=== PATIENT | male | born 1950 | race Two or more races ===

== ENCOUNTER 2024-03-11 12:02 | Emergency (ER) | payer OTHER ==
[~2024-03-11] VITALS: Ht 177.8 cm; Wt 77.1 kg
[2024-03-11] MEDS ORDERED: BUFFERED ASPIR325 M3 (12:16)
[2024-03-11] MEDS ORDERED: NORVASC5 MG (12:16)
[2024-03-11] MEDS ORDERED: TAMSULOSIN HCL 0.4 MG CAP PO ONE ×2 (12:30→13:20)
[2024-03-11] MEDS ORDERED: MEPERIDINE HCL/PF 50 MG/ML VIAL IM ONE (12:45)
[2024-03-11 14:08] LABS: HEMATOCRIT 40.5 % (39.0-48.0); MEAN CELL VOLUME 95.9 fL (80.0-100.00); MEAN CORPUSCULAR HEMOGLOBIN 33.2 pg (27.00-32.0); MEAN CORPUSCULAR HGB CONC 34.6 g/dl (32.0-36.0); PLATELET COUNT 276 K/uL (150-450); RED BLOOD COUNT 4.22 M/uL (4.00-6.00)
[2024-03-11 14:38] LABS: CALCIUM 9.5 mg/dL (8.5-10.1); CREATININE SERUM 1.48 mg/dL (0.70-1.30); GFR 46.46; POTASSIUM 4.74 mEq/L (3.5-5.1)
[2024-03-11] MEDS ORDERED: HEPARIN SODIUM,PORCINE 500 UNITS/5 ML VIAL IV ONE (14:38)
[2024-03-11] MEDS ORDERED: CIPROFLOXACIN IN 5 % DEXTROSE 400 MG/200 ML PIGGYBAG IV ONE ×2 (15:00→15:21)
[2024-03-11] MEDS ORDERED: METHYLPREDNISOLONE SOD SUCC 125 MG VIAL IV ONE (15:15)
[2024-03-11] MEDS ORDERED: METHYLPREDNISOLONE SOD SUCC 125 MG VIAL ONE (15:21)
[2024-03-11] MEDS ORDERED: MEPERIDINE HCL 25 MG/ML AMPUL IV ONE (15:30)
[2024-03-11] MEDS ORDERED: NEOSTIGMINE METHYLSULFATE 1 MG/ML IV ONE (15:45)
[2024-03-11] MEDS ORDERED: LIDOCAINE HCL VISCOUS 20MG/ML BLIST 15ML MM ONE (17:17)
== END 2024-03-12 00:27 | disposition home or self-care (01) ==
LOC: ER 12:04
PROVIDERS: Emergency Medicine
DX: N40.1 Benign prostatic hyperplasia with lower urinary tract symptoms (principal); R33.8 Other retention of urine; I10 Essential (primary) hypertension
CPT/HCPCS: 36415; 96365; 96372; 99282; J0744; J2180; J3490

== ENCOUNTER 2024-03-12 21:26 | Emergency (ER) | payer OTHER ==
[~2024-03-12] VITALS: Ht 167.6 cm; Wt 72.6 kg
[~2024-03-12 21:26] MED LIST: BUFFERED ASPIR325 M3; NORVASC5 MG
== END 2024-03-12 22:26 | disposition home or self-care (01) ==
LOC: ER 21:27
DX: R33.9 Retention of urine, unspecified (principal); I10 Essential (primary) hypertension

== ENCOUNTER 2024-03-19 22:28 | Emergency (ER) | payer OTHER ==
[~2024-03-19] VITALS: Ht 177.8 cm; Wt 76.2 kg
[2024-03-20] MEDS ORDERED: LIDOCAINE HCL VISCOUS 20MG/ML BLIST 15ML MM ONE (00:31)
[2024-03-20] MEDS ORDERED: POVIDONE-IODINE 118 ML BOTT TOP ONE (01:35)
== END 2024-03-20 02:12 ==
LOC: ER 22:30
DX: R33.9 Retention of urine, unspecified (principal); I10 Essential (primary) hypertension